=== PATIENT | female | born 1985 | race Caucasian/White ===

== ENCOUNTER 2023-06-22 10:16 | Outpatient (AMB) | payer OTHER, SELFPAY ==
[2023-06-22 10:32] VITALS: BP 114/74; PULSE 107; RESP 12; TEMP 36.4; O2SAT 99; BMI 32.8
--- NOTE | 2023-06-22 10:32 | MHC.OFFWIV ---
Intake Vital Signs 06/22/23 10:32 Height 5 ft 4 in Weight 191 lb BMI 32.8 BP 114/74 Blood Pressure Location Lt brachial Position Sitting Respiration 12 Pulse 107 H Pulse Source Pulse Oximeter Temp 97.6 F Temp Source Temporal Artery Scan Pulse Oximetry (%) 99 Oxygen Delivery Method Room Air Intake Visit Reasons: rash on right leg, lower abdomen/back Intake Note: Patient stated that there isn't any itchiness or pain. Skin feels raised and they are round shaped blotches all over lower body. Spots on leg are biggest. Patient states that leg rash has been around for a couple months and the lower abdomen/back is more recent. 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 Spots on leg are biggest. Patient states that leg rash has been around for a couple months and the lower abdomen/back is more recent. She denies any itch. [facility] Social History Patient Tobacco Use Status: Never used Tobacco Review of Systems Const Denies chills, Denies fatigue, Denies fever(s), Denies headache(s) and Denies weakness ENT Denies dizziness and Denies headache(s) Card Denies dyspnea Resp Denies cough, Denies dyspnea, Denies wheezing and Denies other (shortness of breath) Musc Denies numbness and Denies tingling Skin/Breast Reports rash Neuro Denies dizziness, Denies headache(s), Denies numbness, Denies tingling and Denies weakness Psych Denies anxiety and Denies depression Endo Denies fatigue Aller/Immun Denies wheezing Physical Exam Vital Signs: Last Vital Signs Temp 97.6 F 06/22/23 10:32 Pulse 107 H 06/22/23 10:32 Resp 12 06/22/23 10:32 BP 114/74 06/22/23 10:32 Pulse Ox 99 06/22/23 10:32 Oxygen Delivery Method Room Air 06/22/23 10:32 BMI result Body Mass Index 32.8 Const General: well developed; No acute distress Nutritional Appearance: well nourished Orientation/consciousness: patient oriented x3 HEENT Head: Yes normocephalic and Yes atraumatic Eyes General: appearance normal, both eyes and all related structures Pupils: Equal, round and reactive pupils present EOM: EOMs intact bilaterally Resp Effort & Inspection: normal respiratory effort Neuro General: patient oriented x3 and gait normal Cranial nerves: Yes Equal, round and reactive pupils present Psych Affect: normal affect Assessment & Plan Assessment & Plan (1) Pityriasis rosea: Code(s): L42 - Pityriasis rosea Plan: Will use a short course of prednisone and she can use topical steroid for any itch or irritation Some association with herpetic infections and patient takes valacyclovir so can try this as well Ultimately tends to be self-limiting in a few weeks Not contagious -she may go to work Call or return to office if not improving or if worsens. Medications: New betamethasone valerate 0.1% 1 appl topical BID PRN 45 grams 1RF skin irritation 14 days prednisone 20 mg PO DAILY 5 tabs 0RF 5 days Coding Level of Care Code Est Pt Level 3 (45218) Diagnoses Pityriasis rosea L42
== END 2023-06-22 11:29 | disposition home or self-care (01) ==
PROVIDERS: Visit Provider Family Medicine
DX: L42 Pityriasis rosea (principal)
CPT/HCPCS: 99213

== ENCOUNTER 2024-07-02 01:23 | Emergency (ER) | payer OTHER, SELFPAY ==
[2024-07-02 01:34] VITALS: BP 136/98; PULSE 99; RESP 16; TEMP 36.6; O2SAT 98; BMI 29.2
--- NOTE | 2024-07-02 01:38 | ECG_ITS ---
Test Reason : PALPATION Blood Pressure : / mmHG Vent. Rate : 083 BPM Atrial Rate : 083 BPM P-R Int : 188 ms QRS Dur : 088 ms QT Int : 380 ms P-R-T Axes : 041 067 038 degrees QTc Int : 446 ms Normal sinus rhythm Possible Left atrial enlargement Low voltage QRS Borderline ECG No previous ECGs available Referred By: Rocky Swanson Electronically Signed By:GARRISON TORRES MD
--- NOTE | 2024-07-02 01:40 | ED_ITS ---
HPI - General Adult General Chief complaint: General Medical Stated complaint: Palpitations Time Seen by Provider: 07/02/24 01:33 Source: patient Mode of arrival: ambulatory Limitations: no limitations History of Present Illness ED Provider: tejal GREENWOOD narrative: Patient's history of anxiety and palpitation/SVT started on propranolol 10 mg as needed today around midnight patient was going to sleep felt real anxious so she took her 10 mg of propranolol for the 1st time went to sleep woke up in 2 hours with feeling of palpitation no chest pain no syncope no dizziness patient felt palpitation woke her up at this time Related Data Home Medications ?Medication ?Instructions ?Recorded ?Confirmed valacyclovir 1 gram tablet 1,000 mg PO BID PRN 06/22/23 Previous Rx's ?Medication ?Instructions ?Recorded betamethasone valerate 0.1 % 1 appl topical BID PRN skin 06/22/23 topical cream irritation 14 days #45 grams prednisone 20 mg tablet 20 mg PO DAILY 5 days #5 tabs 06/22/23 Allergies Allergy/AdvReac Type Severity Reaction Status Date / Time No Known Allergies Allergy Verified 07/02/24 01:37 Review of Systems 2 Review of Systems: Yes all other systems are reviewed and are negative [facility] Social History Social History Patient Tobacco Use Status: Never used Tobacco Smoked in Last 30 Days: No Use of substances other than those prescribed or required for medical reasons: No Advance Directives: No Advance Directives Information Provided: Yes Do you have a plan to hurt others: No Plan Physical Exam ED Vital Signs: Vital Signs - 24 hr 07/02/24 01:34 07/02/24 01:54 07/02/24 03:05 Temperature 97.8 F 97.8 F 97.8 F Pulse Rate 99 94 94 Respiratory Rate 16 18 18 Blood Pressure 136/98 H 128/74 128/74 Pulse Oximetry 98 100 100 Oxygen Delivery Method Room Air Room Air Room Air BMI result Body Mass Index 29.2 Appearance: Alert. Oriented X3. No acute distress. Anxious Eyes: No pallor or icterus ENT: Pharynx normal. Oral Mucosa moist Neck: Normal inspection. Neck supple. CVS: Normal heart rate and rhythm. Pulses normal. Respiratory: No respiratory distress. Equal air entry bilateral, no wheezing/rales/rhonchi Abdomen: Soft and nontender. Bowel sounds are present, Skin: Skin warm and dry. Normal skin color. Normal skin turgor. Extremities: No lower extremity edema. No calf tenderness Neuro: Oriented X 3. 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 07/02/24 01:51 07/02/24 01:51 Labs: Lab Results 07/02/24 07/02/24 Range/Units 01:33 01:51 WBC 8.1 (4.8-10.8) X10*3/uL RBC 4.31 (4.20-5.50) X10*6/uL Hgb 13.2 (12.0-16.0) g/dl Hct 37.8 (37.0-47.0) % MCV 87.7 (80.0-98.0) fL MCH 30.6 (27.0-33.0) pg MCHC 34.9 (31.0-35.0) g/dl RDW 13.1 (11.0-16.0) % Plt Count 271 (160-400) X10*3/uL MPV 9.2 L (9.4-12.3) fL Immature Gran % (Auto) 0.2 (0.0-0.4) % Neut % (Auto) 57.8 (45-73) % Lymph % (Auto) 31.6 (20-40) % [place] % (Auto) 8.7 (2-11) % Eos % (Auto) 1.2 (0-4) % Baso % (Auto) 0.5 (0-2) % Lymph # (Auto) 2.6 (1.2-4.9) X10*3/uL [place] # (Auto) 0.7 (0.1-1.2) X10*3/uL Eos # (Auto) 0.1 (0.0-0.4) X10*3/uL Baso # (Auto) 0.0 (0.0-0.2) X10*3/uL Abs Immat Gran (auto) 0.02 (0.00-0.03) X10*3/uL Absolute Neuts (auto) 4.7 (2.0-8.3) x10*3/uL Absolute Nucleated RBC 0.000 (0.0-0.012) X10*3/uL Nucleated RBC % (auto) 0.0 (0.0-0.2) /100WBC Sodium 138 (135-145) mmol/L Potassium 3.6 (3.3-5.1) mmol/L Chloride 103 (96-108) mmol/L Carbon Dioxide 26 (22-29) mmol/L Anion Gap 13 (12-20) BUN 11 (9-16) mg/dL Creatinine 1.06 (0.5-1.4) mg/dL Estim Creat Clear Calc 70.9 Estimated GFR 57 POC Glucose 132 H (60-115) mg/dL Random Glucose 99 (60-115) mg/dL Calcium 9.0 (8.4-10.2) mg/dL Total Bilirubin 0.4 (0.0-1.0) mg/dL AST 17 (5-31) U/L ALT 16 (0-31) U/L Alkaline Phosphatase 61 (39-117) U/L Troponin I High Sens < 2.7 (<3.5-17.0) ng/L Total Protein 7.2 (6.5-8.0) g/dL Albumin 4.2 (3.5-5.0) g/dL Independent Interpretation I performed an independent interpretation of an: EKG Interpretation: Normal sinus rhythm heart rate 83 beats per minute normal interval normal axis no acute ST T wave changes no acute ischemia Discharge Plan Discharge Clinical Impression: Heart palpitations Patient Disposition: Home, Self-Care Instructions: Heart Palpitations (ED) Additional Instructions: Drink plenty of fluids Continue propranolol as needed for palpitation as prescribed Prescriptions: No Action valacyclovir 1 gram tablet 1,000 mg PO BID PRN betamethasone valerate 0.1 % cream 1 appl topical BID PRN (Reason: skin irritation) 14 Days Qty: 45 1RF prednisone 20 mg tablet 20 mg PO DAILY 5 Days Qty: 5 0RF Interventions: ED Discharge Assessment Last Done: 07/02/24 03:05 Discharge Date/Time: 07/02/24 03:49 Print Language: Banglades[place]
[2024-07-02 01:44] LABS: Glucose, Whole Blood 132 mg/dL (60-115)
[2024-07-02 01:54] VITALS: BP 128/74; PULSE 94; RESP 18; TEMP 36.6; O2SAT 100
[2024-07-02 01:55] LABS: MANUAL DIFF FLAG NO
[2024-07-02 01:57] LABS: Basophils Percent Auto 0.5 % (0-2); Eosinophils Absolute Auto 0.1 X10*3/uL (0.0-0.4); Eosinophils Percent Auto 1.2 % (0-4); Hematocrit 37.8 % (37.0-47.0); Hemoglobin 13.2 g/dl (12.0-16.0); Imm Gran Abs Auto 0.02 X10*3/uL (0.00-0.03); Imm Gran Pct Auto 0.2 % (0.0-0.4); Lymphocytes Absolute Auto 2.6 X10*3/uL (1.2-4.9); Lymphocytes Percent Auto 31.6 % (20-40); Mean Corpuscular HGB Conc 34.9 g/dl (31.0-35.0); Mean Corpuscular Hemoglobin 30.6 pg (27.0-33.0); Mean Corpuscular Volume 87.7 fL (80.0-98.0); Mean Platelet Volume 9.2 fL (9.4-12.3); Monocytes Absolute Auto 0.7 X10*3/uL (0.1-1.2); Monocytes Percent Auto 8.7 % (2-11); Neutrophils Absolute Auto 4.7 x10*3/uL (2.0-8.3); Neutrophils Percent Auto 57.8 % (45-73); Platelet Count 271 X10*3/uL (160-400); Red Blood Count 4.31 X10*6/uL (4.20-5.50); Red Cell Distribution Width 13.1 % (11.0-16.0); White Blood Count 8.1 X10*3/uL (4.8-10.8)
[2024-07-02 02:12] LABS: Alanine Aminotransferase 16 U/L (0-31); Albumin Level 4.2 g/dL (3.5-5.0); Alkaline Phosphatase 61 U/L (39-117); Anion Gap 13 (12-20); Aspartate Amino Transferase 17 U/L (5-31); Bilirubin Total 0.4 mg/dL (0.0-1.0); Blood Urea Nitrogen 11 mg/dL (9-16); Carbon Dioxide 26 mmol/L (22-29); Chloride 103 mmol/L (96-108); Creatinine Clr Calc Pharmacy 70.9; Estimated Glomerular Filt Rate 57; Glucose Random 99 mg/dL (60-115); Potassium 3.6 mmol/L (3.3-5.1); Sodium 138 mmol/L (135-145); Total Protein 7.2 g/dL (6.5-8.0)
[2024-07-02 02:20] LABS: Troponin-I High Sensitivity < 2.7 ng/L (<3.5-17.0)
[2024-07-02 03:05] VITALS: BP 128/74; PULSE 94; RESP 18; TEMP 36.6; O2SAT 100
== END 2024-07-02 03:49 | disposition home or self-care (01) ==
PROVIDERS: Emergency Provider Internal Medicine
DX: R00.2 Palpitations (principal); R00.0 Tachycardia, unspecified; Z79.899 Other long term (current) drug therapy
CPT/HCPCS: 36415; 80053; 82947; 84484; 85025; 93005; 99283; 99285

== ENCOUNTER → 2024-07-02 01:38 | Outpatient (BNV) | payer OTHER, SELFPAY | PROVIDERS: Emergency Provider Internal Medicine; Visit Provider Internal Medicine Cardiovascular Disease | DX: R00.2 Palpitations (principal) | CPT/HCPCS: 93010 ==